=== PATIENT | male | born 1950 | race Caucasian/White ===

== ENCOUNTER 2016-11-15 10:32 | Observation (INO) | payer MEDICARE, BC ==
[2016-11-15] MEDS ORDERED: Sodium Chloride 0.9% 1,000 ML IV ONE (10:46)
[2016-11-15] MEDS ORDERED: Ondansetron 4 MG/2 ML SDV IVPUSH ONE (10:46)
[2016-11-15] MEDS ORDERED: Albuterol/Ipratropium 3.0-0.5 MG/3 ML Neb Soln NEB ONE (10:49)
[2016-11-15 11:38] LABS: CHLORIDE,CL 102 mmol/L (98-107); SODIUM,NA 140 mmol/L (136-145)
[2016-11-15] MEDS ORDERED: cefTRIAXone 1 GM Vial IVPUSH ONE (13:01)
--- NOTE | 2016-11-15 13:09 | EDM.PDOC ---
ED HPI GENERAL MEDICAL PROBLEM - General Chief Complaint: General Stated Complaint: nausea, diaphoretic Time Seen by Provider: 11/15/16 10:36 Source of Information: Reports: Patient, Family History Limitations: Reports: No limitations - History of Present Illness INITIAL COMMENTS - FREE TEXT/NARRATIVE: Patient presents with complaints of dizziness, nausea, shortness of breath, chills, chest pain, abdominal cramping. He has no complaints of headache, diarrhea, loose stools, blood in urine, stool or emesis. History of dissected AAA with repair 5 years ago. He denies smoking tobacco. He does endorse daily marijuana use, and daily drinking. States he drinks rum and diets. 6-8 per night. Onset: today Onset Date: 11/15/16 Onset Time: 10:00 Duration: Intermittent Location: Reports: chest, abdomen Quality: Reports: Ache Severity: mild Associated Symptoms: Reports: diaphoresis, fever/chills, nausea/vomiting, shortness of breath - Related Data Allergies Allergy/AdvReac Type Severity Reaction Status Date / Time No Known Allergies Allergy Verified 11/15/16 10:41 Home Meds: Home Meds Cyanocobalamin (Vitamin B12) [Vitamin B13] 500 mcg PO DAILY 12/19/13 [History] Hydrochlorothiazide/Lisinopril [Lisinopril-HCTZ 20-12.5 MG] 1 tab PO DAILY 12/19 [History] Ibuprofen [Advil] 200 mg PO PRN 12/19/13 [History] Metoprolol Tartrate 2 tab PO BID 12/19/13 [History] Multivitamin [Multi Vitamin Daily] 1 each PO 12/19/13 [History] Naproxen Sodium [Aleve] 220 mg PO BID 12/19/13 [History] Sertraline [Zoloft] 100 mg PO DAILY 12/19/13 [History] amLODIPine [Norvasc] 2 tab PO DAILY 12/19/13 [History] Aspirin [Ecotrin] 160 mg PO DAILY 11/15/16 [History] Cyclobenzaprine [Flexeril] 10 mg PO TID PRN 11/15/16 [History] Ferrous Sulfate [Iron] 325 mg PO DAILY 11/15/16 [History] atorvaSTATin [Lipitor] 10 mg PO BEDTIME 11/15/16 [History] Past Medical History - Past Surgical History Cardiovascular Surgical History: Reports: Other (see below) Other Cardiovascular Surgeries/Procedures: dissecting aorta repair Social & Family History - Tobacco Use Smoking Status *Q: Former Smoker Years of Tobacco use: 30 Used Tobacco, but Quit: Yes Month Tobacco Last Used: ? - Alcohol Use Days Per Week of Alcohol Use: 7 Number of Drinks Per Day: 5 Total Drinks Per Week: 35 - Recreational Drug Use Recreational Drug Use: Yes Drug Use in Last 12 Months: Yes Recreational Drug Type: Reports: Marijuana/Hashish Recreational Drug Use Frequency: Daily ED ROS GENERAL - Review of Systems Review Of Systems: See Below Constitutional: Reports: chills, diaphoresis, decreased appetite HEENT: Reports: No symptoms Respiratory: Reports: Shortness of Breath Cardiovascular: Reports: Chest pain Endocrine: Reports: no symptoms GI/Abdominal: Reports: Abdominal pain, Nausea, Vomiting : Reports: no symptoms Musculoskeletal: Reports: no symptoms Skin: Reports: diaphoresis Neurological: Reports: No Symptoms Psychiatric: Reports: No symptoms Hematologic/Lymphatic: Reports: no symptoms Immunologic: Reports: no symptoms ED EXAM, GENERAL - Physical Exam Exam: See Below Exam Limited By: No limitations General Appearance: alert, WD/WN, mild distress Eye Exam: bilateral eye: EOMI, PERRL Ears: normal TMs Throat/Mouth: Normal inspection, Normal oropharynx, Other (multiple teeth with caries) Head: atraumatic, normocephalic Neck: normal inspection Respiratory/Chest: no respiratory distress, lungs clear, normal breath sounds, no accessory muscle use, chest non-tender Cardiovascular: normal peripheral pulses, bradycardia, systolic murmur Peripheral Pulses: 2+: posterior tibial (L), posterior tibial (R), dorsalis pedis (L), dorsalis pedis (R) GI/Abdominal: Normal Bowel Sounds, Soft, Non-Tender Back Exam: normal inspection Extremities: normal inspection, normal range of motion, non-tender, no pedal edema, normal capillary refill Neurological: alert, oriented, CN II-XII intact, normal cognition, normal gait, normal reflexes Psychiatric: normal affect, normal mood Skin Exam: Warm, Dry, Intact Lymphatic: no adenopathy Course - Vital Signs Last Recorded V/S: Last Vital Signs Temp 35.3 C 11/15/16 12:01 Pulse 64 11/15/16 12:35 Resp 15 11/15/16 12:35 BP 118/45 L 11/15/16 12:35 Pulse Ox 100 11/15/16 12:35 - Orders/Labs/Meds Orders: Active Orders 24 hr Category Date Time Status EKG 12 Lead [EKG Documentation Completion] [RC] ROUTINE Care 11/15/16 10:37 Ordered RT Aerosol Therapy [RC] ASDIRECTED Care 11/15/16 10:50 Ordered Chest Abdomen Pelvis w Cont [CT] Stat Exams 11/15/16 11:40 Taken CULTURE BLOOD [BC] Stat Lab 11/15/16 12:32 Stop Req Vancomycin 1,250 mg Med 11/15/16 13:01 Ordered Sodium Chloride 0.9% [Normal Saline] 250 ml IV ONETIME Blood Culture x2 Reflex Set [OM.PC] Stat Oth 11/15/16 12:36 Ordered Medication Orders Vancomycin HCl 1,250 mg/ (Sodium Chloride) 250 mls @ 200 mls/hr IV ONETIME ONE Stop: 11/15/16 14:15 Labs: Laboratory Tests 11/15/16 11/15/16 11/15/16 Range/Units 11:00 11:00 11:00 WBC 14.5 H (4.0-10.0) x10^3/uL RBC 3.38 L (4.5-6.0) x10^6/uL Hgb 11.3 L (14.0-18.0) g/dL Hct 31.6 L (40.0-52.0) % MCV 93.5 H (78.0-93.0) fL MCH 33.4 H (26.0-32.0) pg MCHC 35.8 (32.0-36.0) g/dL RDW Coeff of [place] 12.8 (10.0-15.0) % Plt Count 178 (130-400) x10^3/uL Neut % (Auto) 82.5 H (50.0-80.0) % Lymph % (Auto) 10.2 L (25.0-50.0) % [place] % (Auto) 6.4 (2.0-11.0) % Eos % (Auto) 0.8 (0.0-4.0) % Baso % (Auto) 0.1 L (0.2-1.2) % PT 10.4 (10.0-12.8) SEC INR 0.9 L (2.0-3.5) D-Dimer, Quantitative 6.40 H (<=0.58) mg/LFEU Sodium 140 (136-145) mmol/L Potassium 3.7 (3.5-5.1) mmol/L Chloride 102 (98-107) mmol/L Carbon Dioxide 22 (21-32) mmol/L BUN 28 H (7-18) mg/dL Creatinine 1.1 (0.70-1.30) mg/dL Est Cr Clr Drug Dosing TNP Estimated GFR (MDRD) > 60 Glucose 184 H (74-106) mg/dL Lactic Acid (0.4-2.0) mmol/L Calcium 9.2 (8.5-10.1) mg/dL Corrected Calcium 8.88 (8.5-10.1) mg/dL Total Bilirubin 0.5 (0.2-1.0) mg/dL AST 40 H (15-37) U/L ALT 25 (16-63) U/L Alkaline Phosphatase 76 (46-116) U/L Creatine Kinase 300 (39-308) U/L Creatine Kinase Index 1.5 (0.0-4.0) % CK-MB (CK-2) 4.5 H (0.0-3.6) ng/mL Troponin I < 0.017 (<=0.056) ng/mL C-Reactive Protein < 0.2 (<=0.9) mg/dL B-Natriuretic Peptide 447 H (<=125) pg/mL Total Protein 8.2 (6.4-8.2) g/dL Albumin 4.4 (3.4-5.0) g/dL Globulin 3.8 Albumin/Globulin Ratio 1.16 Amylase 54 (25-115) U/L Lipase 162 (73-393) U/L Urine Color (YELLOW) Urine Appearance (CLEAR) Urine pH (5.0-8.0) Ur Specific [place] Urine Protein (NEGATIVE) mg/dL Urine Glucose (UA) (NEGATIVE) mg/dL Urine Ketones (NEGATIVE) mg/dL Urine Occult Blood (NEGATIVE) Urine Nitrite (NEGATIVE) Urine Bilirubin (NEGATIVE) Urine Urobilinogen (0.2) EU/dL Ur Leukocyte Esterase (NEGATIVE) Urine RBC (NOT SEEN) /HPF Urine WBC (NOT SEEN) /HPF Ur Squamous Epith Cells (NEGATIVE) /HPF Amorphous Sediment Urine Bacteria (NEGATIVE) /HPF Hyaline Casts (NEGATIVE) /HPF Urine Mucus (NEGATIVE) /LPF 11/15/16 11/15/16 Range/Units 11:00 11:53 WBC (4.0-10.0) x10^3/uL RBC (4.5-6.0) x10^6/uL Hgb (14.0-18.0) g/dL Hct (40.0-52.0) % MCV (78.0-93.0) fL MCH (26.0-32.0) pg MCHC (32.0-36.0) g/dL RDW Coeff of [place] (10.0-15.0) % Plt Count (130-400) x10^3/uL Neut % (Auto) (50.0-80.0) % Lymph % (Auto) (25.0-50.0) % [place] % (Auto) (2.0-11.0) % Eos % (Auto) (0.0-4.0) % Baso % (Auto) (0.2-1.2) % PT (10.0-12.8) SEC INR (2.0-3.5) D-Dimer, Quantitative (<=0.58) mg/LFEU Sodium (136-145) mmol/L Potassium (3.5-5.1) mmol/L Chloride (98-107) mmol/L Carbon Dioxide (21-32) mmol/L BUN (7-18) mg/dL Creatinine (0.70-1.30) mg/dL Est Cr Clr Drug Dosing Estimated GFR (MDRD) Glucose (74-106) mg/dL Lactic Acid 2.1 H (0.4-2.0) mmol/L Calcium (8.5-10.1) mg/dL Corrected Calcium (8.5-10.1) mg/dL Total Bilirubin (0.2-1.0) mg/dL AST (15-37) U/L ALT (16-63) U/L Alkaline Phosphatase (46-116) U/L Creatine Kinase (39-308) U/L Creatine Kinase Index (0.0-4.0) % CK-MB (CK-2) (0.0-3.6) ng/mL Troponin I (<=0.056) ng/mL C-Reactive Protein (<=0.9) mg/dL B-Natriuretic Peptide (<=125) pg/mL Total Protein (6.4-8.2) g/dL Albumin (3.4-5.0) g/dL Globulin Albumin/Globulin Ratio Amylase (25-115) U/L Lipase (73-393) U/L Urine Color Yellow (YELLOW) Urine Appearance Clear (CLEAR) Urine pH 7.0 (5.0-8.0) Ur Specific [place] 1.025 Urine Protein 100 H (NEGATIVE) mg/dL Urine Glucose (UA) 100 H (NEGATIVE) mg/dL Urine Ketones 15 H (NEGATIVE) mg/dL Urine Occult Blood Moderate H (NEGATIVE) Urine Nitrite Negative (NEGATIVE) Urine Bilirubin Negative (NEGATIVE) Urine Urobilinogen 0.2 (0.2) EU/dL Ur Leukocyte Esterase Negative (NEGATIVE) Urine RBC 5-10 H (NOT SEEN) /HPF Urine WBC 0-5 (NOT SEEN) /HPF Ur Squamous Epith Cells Not seen (NEGATIVE) /HPF Amorphous Sediment Few Urine Bacteria Few H (NEGATIVE) /HPF Hyaline Casts Few H (NEGATIVE) /HPF Urine Mucus Few H (NEGATIVE) /LPF Meds: Medications Generic Name Dose Route Start Last Admin Trade Name Freq PRN Reason Stop Dose Admin Vancomycin HCl 1,250 mg/ 250 mls @ 200 mls/hr 11/15/16 13:01 Sodium Chloride IV 11/15/16 14:15 ONETIME ONE Discontinued Medications Generic Name Dose Route Start Last Admin Trade Name Freq PRN Reason Stop Dose Admin Albuterol/Ipratropium 3 ml 11/15/16 10:49 11/15/16 11:21 Duoneb 3.0-0.5 Mg/3 Ml NEB 11/15/16 10:50 3 ml ONETIME ONE Administration Ceftriaxone Sodium 1 gm 11/15/16 13:01 Rocephin IVPUSH 11/15/16 13:02 ONETIME ONE Sodium Chloride 1,000 mls @ 999 mls/hr 11/15/16 10:46 11/15/16 11:05 Normal Saline IV 11/15/16 11:46 999 mls/hr .BOLUS ONE Administration Ondansetron HCl 4 mg 11/15/16 10:46 11/15/16 11:06 Zofran IVPUSH 11/15/16 10:47 4 mg ONETIME ONE Administration - Re-Assessments/Exams Free Text/Narrative Re-Assessment/Exam: 11/15/16 14:33 Rad[address] review of [address] CT with concerns related to his aortic aneurism. I did review the results with Dr. Maricruz Sheets at [facility] in [place]. She repaired his original dissection. She did not feel there were any acute findings and recommended outpatient follow up. Patient is admitted for nausea, vomiting, dehydration, copd exacerbation Departure - Departure Time of Disposition: 14:00 Disposition: Refer to Observation Condition: good Clinical Impression: Dehydration, Nausea & vomiting, Alcohol abuse, Emphysematous COPD - Discharge Information Forms: ED Department Discharge - Problem List & Annotations (1) Dehydration SNOMED Code(s): 92902319 Code(s): E86.0 - DEHYDRATION Status: Acute Current Visit: Yes (2) Emphysematous COPD SNOMED Code(s): 19271296 Code(s): J43.9 - EMPHYSEMA, UNSPECIFIED Status: Acute Current Visit: Yes (3) Nausea & vomiting SNOMED Code(s): 88770970 Code(s): R11.2 - NAUSEA WITH VOMITING, UNSPECIFIED Status: Acute Current Visit: Yes - My Orders Last 24 Hours: My Active Orders 11/15/16 10:37 EKG 12 Lead [EKG Documentation Completion] [RC] ROUTINE 11/15/16 10:50 RT Aerosol Therapy [RC] ASDIRECTED 11/15/16 11:40 Chest Abdomen Pelvis w Cont [CT] Stat 11/15/16 12:32 CULTURE BLOOD [BC] Stat 11/15/16 12:36 Blood Culture x2 Reflex Set [OM.PC] Stat 11/15/16 13:01 Vancomycin 1,250 mg Sodium Chloride 0.9% [Normal Saline] 250 ml IV ONETIME - Assessment/Plan Last 24 Hours: My Active Orders 11/15/16 10:37 EKG 12 Lead [EKG Documentation Completion] [RC] ROUTINE 11/15/16 10:50 RT Aerosol Therapy [RC] ASDIRECTED 11/15/16 11:40 Chest Abdomen Pelvis w Cont [CT] Stat 11/15/16 12:32 CULTURE BLOOD [BC] Stat 11/15/16 12:36 Blood Culture x2 Reflex Set [OM.PC] Stat 11/15/16 13:01 Vancomycin 1,250 mg Sodium Chloride 0.9% [Normal Saline] 250 ml IV ONETIME Plan: Please use emergency room history and physical for admission H and P
[2016-11-15] MEDS ORDERED: Morphine 2 MG/ML Syringe IVPUSH PRN (14:38)
[2016-11-15] MEDS ORDERED: Albuterol/Ipratropium 3.0-0.5 MG/3 ML Neb Soln NEB PRN (14:38)
[2016-11-15] MEDS ORDERED: Docusate Sodium 100 MG Cap PO PRN (14:38)
[2016-11-15] MEDS ORDERED: Acetaminophen 325 MG Tab PO PRN (14:38)
[2016-11-15] MEDS ORDERED: Temazepam 15 MG Cap PO PRN (14:38)
[2016-11-15] MEDS ORDERED: Enoxaparin 40 MG/0.4 ML Syringe SUBCUT SCH (14:45)
[2016-11-15] MEDS ORDERED: LORazepam 2 MG/ML MDV IVPUSH PRN (14:47)
[2016-11-15] MEDS ORDERED: methylPREDNISolone Sodium Succinate 125 MG/2 ML SDV IVPUSH ONE (14:49)
[2016-11-15] MEDS ORDERED: Azithromycin 500 MG in Sodium Chloride 0.9% 250 ML IV ONE (15:44)
[2016-11-15] MEDS ORDERED: MVI, Adult with Vitamin K 10 ML, Folic Acid 1 MG, Thiamine 100 MG in Sodium Chloride 0.... IV SCH ×4 (16:00)
[2016-11-15] MEDS ORDERED: Cyclobenzaprine 10 MG Tab PO PRN (18:20)
[2016-11-15] MEDS ORDERED: Non-Formulary Medication 1 Each (Ibuprofen [Advil] 200 MG) PO PRN (18:20)
[2016-11-15] MEDS: Ondansetron 4 MG Tab.DIS PO PRN (19:57)
[2016-11-15] MEDS ORDERED: atorvaSTATin 10 MG Tab PO SCH (20:00)
[2016-11-15] MEDS: Ferrous Sulfate 325 MG Tab PO SCH (21:18)
[2016-11-15] MEDS: Cyanocobalamin (Vitamin B12) 250 MCG Tab PO SCH (21:18)
[2016-11-15] MEDS: Multivitamins with Iron/Calcium/Folic Acid/Minerals Tab PO SCH (21:18)
[2016-11-15] MEDS: amLODIPine 5 MG Tab PO SCH (21:19)
[2016-11-15] MEDS: Aspirin 81 MG Tab.EC PO SCH (21:19)
[2016-11-15] MEDS: Hydrochlorothiazide 12.5 MG Cap PO SCH (21:19)
[2016-11-15] MEDS: Sertraline 100 MG Tab PO SCH (21:19)
[2016-11-15] MEDS: Metoprolol Tartrate 50 MG Tab PO SCH (21:20)
[2016-11-15] MEDS: Lisinopril 20 MG Tab PO SCH (21:20)
[2016-11-16] MEDS ORDERED: Azithromycin 250 MG Tab PO SCH (08:00)
[2016-11-16] MEDS ORDERED: Thiamine 100 MG Tab PO SCH (08:00)
[2016-11-16] MEDS ORDERED: Folic Acid 1 MG Tab PO SCH (08:00)
[2016-11-16] MEDS: Cyanocobalamin (Vitamin B12) 250 MCG Tab PO SCH (08:23)
[2016-11-16] MEDS: Metoprolol Tartrate 50 MG Tab PO SCH (08:23)
[2016-11-16] MEDS: Sertraline 100 MG Tab PO SCH (08:24)
[2016-11-16] MEDS: Multivitamins with Iron/Calcium/Folic Acid/Minerals Tab PO SCH (08:24)
[2016-11-16] MEDS: amLODIPine 5 MG Tab PO SCH (08:24)
[2016-11-16] MEDS: Aspirin 81 MG Tab.EC PO SCH (08:24)
[2016-11-16] MEDS: Hydrochlorothiazide 12.5 MG Cap PO SCH (08:24)
[2016-11-16] MEDS: Ferrous Sulfate 325 MG Tab PO SCH (08:24)
[2016-11-16] MEDS: Lisinopril 20 MG Tab PO SCH (08:24)
[2016-11-16] MEDS: Ondansetron 4 MG Tab.DIS PO PRN (08:33)
[2016-11-16] MEDS ORDERED: Prochlorperazine 5 MG Tab PO ONE (10:28)
[2016-11-16 11:02] VITALS: BP 118/46
--- NOTE | 2016-11-17 09:19 | DISCH ---
ADMITTING PROVIDER: Jorge L Jacome NP. DISCHARGING PROVIDER: Óscar Chacon PA-C. ADMITTING DIAGNOSES: 1. Gastritis. 2. Acute bronchitis. 3. Acute dehydration. SUBJECTIVE: The patient was admitted on 11/15/2016 after being brought to the emergency room by his family. The patient had been experiencing dizziness, nausea, shortness of breath, chills, chest pain, abdominal cramping. The patient was found to have an elevated white count of 14.5, and subsequently a CT scan of the patient's chest, abdomen, and pelvis was obtained. The patient was found to have white count of 14.5 and positive D-dimer. Subsequently, a chest CT and a CT scan of the patient's chest, abdomen, and pelvis was obtained. There was no evidence of any source of infection. There is question whether there was possibly a thoracic aortic aneurysm and he does have a history of previous thoracic aortic aneurysm that was surgically repaired and the residual findings of this were present on the CT. There was no evidence of any acute aneurysm at this time. The patient was rehydrated with normal saline. He was also started on IV antibiotics and Solu-Medrol. He states that he is feeling much better. The patient also did have blood cultures drawn which are pending. To note, he did have a tick bite with surrounding erythema, earlier this week as well. PHYSICAL EXAMINATION: General: A 66-year-old male patient, who is in no acute distress. Vital Signs: Temperature is 38.3, pulse rate 59, blood pressure is 118/46, respiratory rate is 20, O2 saturations 96%. Skin: Warm, pink, and dry. HEENT. Head is normocephalic, atraumatic. Mouth, oral mucosa is moist. Lungs: Diminished with wheezing. Heart: Regular rate and rhythm. Abdomen: Soft, nontender. There is no hepatosplenomegaly noted. There are no masses noted. Extremities: Without edema. Neurologic: He is alert and oriented answers all questions appropriately. Speech is fluent. Gait is within normal limits. HOSPITAL COURSE: Again, the patient was rehydrated. He was subsequently started on IV Rocephin and azithromycin as well as IV Solu-Medrol. This morning, he states that he is feeling much better, does wish to be discharged. He is continuing to experience some mild residual nausea which was refractory to Zofran. Subsequently, the patient was treated with Compazine which was helpful for the patient's nausea. DISCHARGE CONDITION: Good. DISPOSITION: Home. Follow up in 7-10 days with his primary care provider. DISCHARGE MEDICATIONS: Continue with home medications. He was given a prescription for both Reglan and Compazine for his nausea and vomiting. Given the fact that he was bitten by a tick and he is experiencing a COPD exacerbation, I did start him on doxycycline 100 mg p.o. b.i.d. for 10 days, and he was also started on Protonix 40 mg once daily for gastritis as well. Given his history of heavy alcohol use. Also, I did order stool cultures and stool O and P as well as stool for fecal occult blood testing. He will bring the sample to the clinic for analysis. All questions were answered. ANIK: 11/16/2016 17:47:33 MODL: 11/16/2016 18:23:56 /[id number]
== END 2016-11-16 13:45 | disposition home or self-care (01) ==
LOC: VM.ED 10:32 → VM.MS 13:57
PROVIDERS: ADMIT Nurse Practitioner Family; ATTEND Nurse Practitioner Family
DX: E86.0 Dehydration (principal); J43.9 Emphysema, unspecified; F10.10 Alcohol abuse, uncomplicated; R61 Generalized hyperhidrosis; K29.70 Gastritis, unspecified, without bleeding; J20.9 Acute bronchitis, unspecified; R11.2 Nausea with vomiting, unspecified; R00.1 Bradycardia, unspecified; I44.0 Atrioventricular block, first degree; R10.9 Unspecified abdominal pain; R94.31 Abnormal electrocardiogram [ECG] [EKG]; R07.9 Chest pain, unspecified; Z79.899 Other long term (current) drug therapy; Z79.82 Long term (current) use of aspirin; Z98.890 Other specified postprocedural states; Z87.891 Personal history of nicotine dependence
CPT/HCPCS: 36415; 71260; 74177; 80053; 81001; 82150; 82550; 82553; 83605; 83690; 83880; 84484; 85025; 85379; 85610; 86140; 86618; 87040; 93005; 94640; 96361; 96365; 96367; 96372; 96375; 99217; 99220; 99285; A9270; G0378; J0456; J0696; J1650; J2270; J2405; J2930; J3370; J3411; J7030; J7050; Q0164

== ENCOUNTER 2017-10-15 08:35 | Day surgery (SDC) | payer MEDICARE, BC ==
[~2017-10-15 08:35] MED LIST: Lactated Ringers 1,000 ML IV SCH
[2017-10-15] MEDS ORDERED: fentaNYL 100 MCG/2 ML SDV ONE (09:36)
[2017-10-15] MEDS ORDERED: Propofol 200 MG/20 ML SDV ONE (09:37)
--- NOTE | 2017-10-15 14:42 | OR ---
PREOPERATIVE DIAGNOSIS: History of polyps. POSTOPERATIVE DIAGNOSIS: Colonic polyps x8, mild diverticulosis. PROCEDURE PROPOSED: Total flexible colonoscopy. PROCEDURE DONE: Total flexible colonoscopy with polypectomy x8. INDICATION: This is a 66-year-old gentleman who comes in for 3-1/2 year followup from a multitude of polyps. He has had 2 prior colonoscopies at which point he had multiple polyps on each exam. TECHNIQUE: The patient was brought to the endoscopy suite, placed in left lateral decubitus position. He was sedated per CLINICAL RADIOLOGIST with MAC anesthesia using propofol. The flexible video colonoscope was then passed transanally and under visualization advanced to the cecum. The patient was found to have multiple polyps throughout his colon, beginning at the hepatic flexure. Three of the polyps were removed by hot snare technique and 5 polyps were removed by cold biopsy forceps technique. They ranged anywhere from 15 cm to the hepatic flexure. He had several at 20, one at 15, one at 90. Otherwise, he did have some mild diverticulosis in the sigmoid colon and the scope was then withdrawn after removing all the polyps and retrieving them and they were all submitted for pathologic examination. He tolerated the procedure well. FINAL IMPRESSION: 1. Multiple colonic polyps x8, removed. 2. Mild sigmoid diverticulosis. PLAN: He will be sent a letter with pathology report. I felt he should have another repeat exam in 3 years due to informing many polyps within a 3-year span. SCM: 10/15/2017 11:12:42 MODL: 10/15/2017 12:25:26 /[id number]
[2017-10-15 15:37] VITALS: BP 132/57
--- NOTE | 2017-10-19 10:18 | LETTER ---
10/19/2017 Mr. Moose Villarreal RE: MOOSE Turner SHAREEGUILLERMO : 1950 Dear Mr. Villarreal: All of the polyps removed from your colon were precancerous polyps known as tubular adenomas. None of them had any worrisome findings within them, but I do feel you should have another 3-year followup exam because of the multitude of polyps that you are forming. Hopefully, you have recovered from your bout after the colonoscopy. If you have any further questions regarding this, feel free to call. Respectfully,
== END 2017-10-15 16:00 | disposition other institution (70) ==
LOC: VM.SDS 08:35
PROVIDERS: ATTEND Surgery
DX: D12.3 Benign neoplasm of transverse colon (principal); K57.30 Diverticulosis of large intestine without perforation or abscess without bleeding; E78.5 Hyperlipidemia, unspecified; I10 Essential (primary) hypertension; I71.4 Abdominal aortic aneurysm, without rupture; N52.9 Male erectile dysfunction, unspecified; M19.90 Unspecified osteoarthritis, unspecified site; G47.33 Obstructive sleep apnea (adult) (pediatric); F32.9 Major depressive disorder, single episode, unspecified; Z99.89 Dependence on other enabling machines and devices; Z79.899 Other long term (current) drug therapy; Z87.891 Personal history of nicotine dependence; Z86.010 Personal history of colon polyps; Z90.89 Acquired absence of other organs; Z98.52 Vasectomy status; Z98.890 Other specified postprocedural states; R10.9 Unspecified abdominal pain; G89.18 Other acute postprocedural pain; R10.84 Generalized abdominal pain; K63.5 Polyp of colon; E78.00 Pure hypercholesterolemia, unspecified; I25.2 Old myocardial infarction
CPT/HCPCS: 00812; 36415; 74022; 74177; 80053; 83880; 84484; 85025; 85610; 86140; 88305; 93005; 99284; 99284-GF; A9270-GY; J2704; J3010; J7120; Q9967

== ENCOUNTER 2017-10-15 15:56 | Emergency (ER) | payer MEDICARE, BC ==
[2017-10-15] MEDS ORDERED: Iopamidol 612 MG/ML 100 ML Bottle IVPUSH ONE (16:12)
--- NOTE | 2017-10-15 16:21 | EDM.PDOC ---
ED HPI GENERAL MEDICAL PROBLEM - General Chief Complaint: Gastrointestinal Problem Stated Complaint: POST OP COMPLICATIONS Time Seen by Provider: 10/15/17 16:02 Source of Information: Reports: Patient, RN Notes Reviewed History Limitations: Reports: No Limitations - History of Present Illness INITIAL COMMENTS - FREE TEXT/NARRATIVE: Patient here for testing post op colonoscopy. Dr. Oh performed a colonoscopy at around 12 today. He started to have post op abdominal pain. 8 polyps were removed during the procedure. They had him up walking, eating, and it still did persist. He did have an EKG which is non concerning on examination. Abdominal x-rays were negative for free air. Will work up for cardiac concerns. History of AAA rupture and repair 8 years ago. He rates his pain a 3 to the mid abdomen and complains of gas cramping pain. No chest pain. Slightly short of breath, 100% on room air. No other complaints. States he just wants to go home and sleep it off. Onset: Today, Gradual Duration: Intermittent Severity: Mild Associated Symptoms: Reports: No Other Symptoms - Related Data Allergies Allergy/AdvReac Type Severity Reaction Status Date / Time No Known Allergies Allergy Verified 10/15/17 16:07 Home Meds: Home Meds Cyanocobalamin (Vitamin B12) [Vitamin B12] 500 mcg PO DAILY 12/19/13 [History] Hydrochlorothiazide/Lisinopril [Lisinopril/HCTZ 20-12.5 MG] 1 tab PO DAILY 12/19 [History] Ibuprofen [Advil] 200 mg PO Q6H PRN 12/19/13 [History] Metoprolol Tartrate 150 mg PO BID 12/19/13 [History] Multivitamin [Multi-Vitamin Daily] 1 each PO DAILY 12/19/13 [History] Naproxen Sodium [Aleve] 220 mg PO BID 12/19/13 [History] Sertraline [Zoloft] 100 mg PO DAILY 12/19/13 [History] Cyclobenzaprine [Flexeril] 10 mg PO TID PRN 11/15/16 [History] atorvaSTATin [Lipitor] 10 mg PO BEDTIME 11/15/16 [History] Past Medical History HEENT History: Reports: None Cardiovascular History: Reports: Angina, High Cholesterol, Hypertension, OR, Other (See Below) Other Cardiovascular History: small AAA Respiratory History: Reports: Sleep Apnea Gastrointestinal History: Reports: Colon Polyp, Diverticulosis, Hemorrhoids Genitourinary History: Reports: BPH, Other (See Below) Other Genitourinary History: ED. gynecomastia Musculoskeletal History: Reports: Arthritis, Other (See Below) Other Musculoskeletal History: DJD Neurological History: Reports: None Psychiatric History: Reports: Depression, Other (See Below) Other Psychiatric History: alcohol abuse Endocrine/Metabolic History: Reports: None Hematologic History: Reports: Other (See Below) Other Hematologic History: clotting disorder Immunologic History: Reports: None Oncologic (Cancer) History: Reports: None Dermatologic History: Reports: None - Past Surgical History Head Surgeries/Procedures: Reports: None HEENT Surgical History: Reports: Adenoidectomy, Tonsillectomy Cardiovascular Surgical History: Reports: Other (See Below) Other Cardiovascular Surgeries/Procedures: dissecting thoracic aorta repair GI Surgical History: Reports: Colonoscopy, Hernia, Inguinal Male Surgical History: Reports: TURP-Transurethral Resection of Prostate, Vasectomy Musculoskeletal Surgical History: Reports: None Oncologic Surgical History: Reports: None Social & Family History - Family History Family Medical History: Noncontributory - Tobacco Use Smoking Status *Q: Former Smoker Years of Tobacco use: 30 Used Tobacco, but Quit: Yes Month/Year Tobacco Last Used: 6 year ago - Alcohol Use Days Per Week of Alcohol Use: 7 Number of Drinks Per Day: 5 Total Drinks Per Week: 35 - Recreational Drug Use Recreational Drug Use: No Drug Use in Last 12 Months: No Recreational Drug Type: Reports: Marijuana/Hashish Recreational Drug Use Frequency: Daily ED ROS GENERAL - Review of Systems Review Of Systems: See Below Constitutional: Reports: No Symptoms HEENT: Reports: No Symptoms Respiratory: Reports: Shortness of Breath Cardiovascular: Reports: No Symptoms Endocrine: Reports: No Symptoms GI/Abdominal: Reports: Abdominal Pain : Reports: No Symptoms Musculoskeletal: Reports: No Symptoms Skin: Reports: No Symptoms Neurological: Reports: No Symptoms Psychiatric: Reports: No Symptoms Hematologic/Lymphatic: Reports: No Symptoms Immunologic: Reports: No Symptoms ED EXAM, GI/ABD - Physical Exam Exam: See Below Exam Limited By: Other (sedation from procedure) General Appearance: Alert, Lethargic Eyes: Bilateral: EOMI Ears: Normal TMs Head: Atraumatic, Normocephalic Neck: Normal Inspection, Supple, Non-Tender, Full Range of Motion Respiratory/Chest: No Respiratory Distress, Lungs Clear, Normal Breath Sounds, No Accessory Muscle Use, Chest Non-Tender Cardiovascular: Normal Peripheral Pulses, Regular Rate, Rhythm, No Edema, No Gallop, No JVD, No Murmur, No Rub Rectal (Males) Exam: Other (no blood noted on rectal exam) Extremities: Normal Inspection, Normal Range of Motion, Non-Tender, Normal Capillary Refill, No Pedal Edema Neurological: Alert, Oriented, CN II-XII Intact, Normal Cognition, Normal Gait, Normal Reflexes, No Motor/Sensory Deficits, Slow to Respond Psychiatric: Normal Affect, Normal Mood Skin Exam: Warm, Dry, Intact, Normal Color, No Rash Lymphatic: No Adenopathy Course - Orders/Labs/Meds Orders: Active Orders 24 hr Category Date Time Status Abdomen Pelvis w Cont [CT] Stat Exams 10/15/17 16:07 Ordered C-REACTIVE PROTEIN [CHEM] Stat Lab 10/15/17 16:03 Ordered CBC WITH AUTO DIFF [HEME] Stat Lab 10/15/17 16:03 Ordered COMPREHENSIVE METABOLIC PN,CMP [CHEM] Stat Lab 10/15/17 16:03 Ordered INR,PT,PROTHROMBIN TIME [COAG] Stat Lab 10/15/17 16:03 Ordered PRO B-TYPE NATRIUR PEPT,BNPPRO [CHEM] Stat Lab 10/15/17 16:03 Ordered TROPONIN I [CHEM] Stat Lab 10/15/17 16:03 Ordered Meds: Medications Discontinued Medications Generic Name Dose Route Start Last Admin Trade Name Freq PRN Reason Stop Dose Admin Iopamidol 100 ml 10/15/17 16:12 Isovue-300 (61%) IVPUSH 10/15/17 16:13 ONETIME ONE - Radiology Interpretation Free Text/Narrative:: CT exam negative for acute process - Re-Assessments/Exams Free Text/Narrative Re-Assessment/Exam: 10/15/17 16:25 was asked by surgical nurse to continue cardiac work up due to post surgical abdominal pain. Will order CT to rule out any aortic aneurism rupture, and perforation. Departure - Departure Time of Disposition: 17:24 Disposition: Home, Self-Care 01 Condition: Good Clinical Impression: Postoperative generalized abdominal pain, Polyp of colon - Discharge Information Instructions: Abdominal Pain, Adult, [id number] Forms: ED Department Discharge Additional Instructions: You are having common abdominal pain sometimes related to gas given to you during your procedure. Cardiac testing has been negative, CT of your abdomen did not show anything acute. You need to ambulate, eat soft diet, drink fluids. Follow up with your primary doctor as symptoms would warrant. Watch for rectal bleeding, increasing abdominal pain, nausea and vomiting, not being able to pass gas, belch, or have a bowel movement over the next few days. If you have any additional questions or concerns, please call the hospital. - Problem List & Annotations (1) Postoperative generalized abdominal pain SNOMED Code(s): 473008417 Code(s): G89.18 - OTHER ACUTE POSTPROCEDURAL PAIN; R10.84 - GENERALIZED ABDOMINAL PAIN Status: Acute Priority: Low Current Visit: Yes - Problem List Review Problem List Initiated/Reviewed/Updated: Yes - My Orders Last 24 Hours: My Active Orders 10/15/17 16:03 C-REACTIVE PROTEIN [CHEM] Stat CBC WITH AUTO DIFF [HEME] Stat COMPREHENSIVE METABOLIC PN,CMP [CHEM] Stat INR,PT,PROTHROMBIN TIME [COAG] Stat PRO B-TYPE NATRIUR PEPT,BNPPRO [CHEM] Stat TROPONIN I [CHEM] Stat 10/15/17 16:07 Abdomen Pelvis w Cont [CT] Stat - Assessment/Plan Last 24 Hours: My Active Orders 10/15/17 16:03 C-REACTIVE PROTEIN [CHEM] Stat CBC WITH AUTO DIFF [HEME] Stat COMPREHENSIVE METABOLIC PN,CMP [CHEM] Stat INR,PT,PROTHROMBIN TIME [COAG] Stat PRO B-TYPE NATRIUR PEPT,BNPPRO [CHEM] Stat TROPONIN I [CHEM] Stat 10/15/17 16:07 Abdomen Pelvis w Cont [CT] Stat Assessment:: postoperative abdominal pain Plan: You are having common abdominal pain sometimes related to gas given to you during your procedure. Cardiac testing has been negative, CT of your abdomen did not show anything acute. You need to ambulate, eat soft diet, drink fluids. Follow up with your primary doctor as symptoms would warrant. Watch for rectal bleeding, increasing abdominal pain, nausea and vomiting, not being able to pass gas, belch, or have a bowel movement over the next few days. If you have any additional questions or concerns, please call the hospital.
[2017-10-15 16:27] VITALS: BP 117/50
[2017-10-15 16:53] LABS: CHLORIDE,CL 102 mmol/L (98-107); SODIUM,NA 138 mmol/L (136-145)
[2017-10-15] MEDS ORDERED: Potassium Chloride 10 MEQ Tab.ER PO ONE (16:56)
[2017-10-15] MEDS ORDERED: Potassium Chloride 20 MEQ Tab.ER PO ONE (17:11)
== END 2017-10-15 17:40 | disposition home or self-care (01) ==
LOC: VM.ED 15:56
DX: G89.18 Other acute postprocedural pain (principal); R10.84 Generalized abdominal pain; K63.5 Polyp of colon; E78.00 Pure hypercholesterolemia, unspecified; I25.2 Old myocardial infarction; I10 Essential (primary) hypertension; F32.9 Major depressive disorder, single episode, unspecified; Z87.891 Personal history of nicotine dependence; Z79.899 Other long term (current) drug therapy
CPT/HCPCS: 36415; 74177; 80053; 83880; 84484; 85025; 85610; 86140; 99284; A9270; Q9967

== ENCOUNTER 2021-01-13 08:06 | Day surgery (SDC) | payer MEDICARE, BC ==
[2021-01-13] MEDS ORDERED: Propofol 200 MG/20 ML SDV ONE ×3 (10:33→11:13)
[2021-01-13] MEDS ORDERED: fentaNYL 100 MCG/2 ML SDV ONE (10:34)
[2021-01-13] MEDS ORDERED: Midazolam 1 MG/ML 2 ML SDV ONE (10:34)
--- NOTE | 2021-01-13 14:53 | OR ---
DATE OF SURGERY: 01/13/2021. REFERRING PROVIDER: BOO Vera. PRE-OPERATIVE DIAGNOSES: History of colon polyps. Last colonoscopy was 3 years ago and a total of 8 polyps were removed. The patient did experience quite a bit of bloating and gas discomfort after the procedure. POST-OPERATIVE DIAGNOSES: 1. A total of 8 polyps removed today (2 using hot snare and 6 using cold forceps). a. 6 mm cecal polyp removed using hot snare. b. 2 mm polyp at entry to the cecum on the ileocecal valve, removed using cold forceps. c. 3 mm x2 at 70 cm, removed using cold forceps. d. 4 mm polyp at 55 cm, removed using cold forceps. e. 10 mm polyp at 50 cm, removed using hot snare. f. 4 mm polyp at 48 cm, removed using cold forceps. 2. Mild sigmoid diverticulosis. 3. Normal-appearing distal ileum. 4. Moderate hemorrhoids, not acutely inflamed. PROCEDURE: Colonoscopy with polypectomy x8 (2 using hot snare and 6 using cold forceps). SURGEON: Pablo Sarkar M.D. ANESTHESIA: Monitored anesthesia care. BOWEL PREP: Good. Moose is a 70-year-old male who was brought to the endoscopy suite after discussing risks and benefits of the procedure. Informed consent was obtained for conscious sedation and colonoscopy with or without biopsy and/or polypectomy. We also discussed possibility of missed lesions. Pre-procedure exam was unremarkable. IV, oxygen, and monitors were placed. The patient was placed in the left lateral decubitus position. Sedation was administered and a digital rectal exam was performed and was unremarkable except for some mild to moderate external hemorrhoids, not acutely inflamed. Colonoscope was passed into the rectum and slowly advanced all the way to the cecum. Cecum was viewed and photographed. The colonoscope was slowly withdrawn and the mucosa was closed observed in a direct circumferential manner. Ileocecal valve was intubated and distal ileum was normal in appearance. Within the cecum, there was noted to be 6-mm sessile polyp removed using hot snare. At the entry to the cecum on the ileocecal valve, there was also a 2-mm polyp noted. This was removed using cold forceps. The ascending colon also revealed a 3-mm polyp x2 at 70 cm. Transverse colon revealed a 4-mm polyp at 55 cm. Near the splenic flexure, there was noted to be a 10-mm polyp at 50 cm and 4-mm polyp at 48 cm. The larger of which was removed using hot snare and the smaller using cold forceps. The descending colon did reveal a kink, which did require little scope maneuvering to get by. This did seem to hold up air within the colon. The sigmoid colon was remarkable for mild diverticulosis. Retroflexion was performed, rectal mucosa revealed some moderate hemorrhoids, not acutely inflamed. Scope was removed. The patient tolerated the procedure well. The patient was monitored until that baseline status. Discharge instructions were reviewed and the patient was discharged in good condition. COMPLICATIONS: None. TOTAL TIME: 40 minutes. ESTIMATED BLOOD LOSS: 1 to 2 mL. RECOMMENDATIONS/FOLLOW-UP: We will await results of path report to determine ideal followup interval. I would like to kindly thank BOO Vera, for this referral. DMB: 01/13/2021 12:30:29 MODL: 01/13/2021 14:30:35 /[id number]
[2021-01-13 14:55] VITALS: BP 114/51; PULSE 64
== END 2021-01-13 14:45 | disposition home or self-care (01) ==
LOC: VM.SDS 08:06
PROVIDERS: ATTEND Family Medicine
DX: Z12.11 Encounter for screening for malignant neoplasm of colon (principal); D12.0 Benign neoplasm of cecum; D12.8 Benign neoplasm of rectum; D12.6 Benign neoplasm of colon, unspecified; K57.30 Diverticulosis of large intestine without perforation or abscess without bleeding; K64.4 Residual hemorrhoidal skin tags; Z86.010 Personal history of colon polyps; I10 Essential (primary) hypertension; E78.5 Hyperlipidemia, unspecified; F32.9 Major depressive disorder, single episode, unspecified; D48.5 Neoplasm of uncertain behavior of skin; H02.31 Blepharochalasis right upper eyelid; H02.34 Blepharochalasis left upper eyelid; G56.22 Lesion of ulnar nerve, left upper limb
CPT/HCPCS: 00811; 45380; 45385; J2250; J2704; J3010; J7120; 88305